=== PATIENT | female | born 1975 | race Caucasian/White ===

== ENCOUNTER → 2018-04-23 | Outpatient (CLI) | payer OTHER ==
[~2018-04-23] MED LIST: No meds per pt.
[2018-04-23 13:44] LABS: BASOPHILS # (AUTO) 0.04 x10^3/uL (0-0.1); BASOPHILS % (AUTO) 0 % (0-1); EOSINOPHILS # (AUTO) 0.56 x10^3/uL (0-0.4); EOSINOPHILS % (AUTO) 5 % (1-7); LYMPHOCYTES # (AUTO) 2.63 x10^3/uL (1-3.4); LYMPHOCYTES % (AUTO) 23 % (22-44); MD NO; MEAN CORPUSCULAR HEMOGLOBIN 30.9 pg (27.0-34.8); MEAN CORPUSCULAR HGB CONC 33.2 g/dL (32.4-35.8); MEAN CORPUSCULAR VOLUME 93.2 fL (80-100); MEAN PLATELET VOLUME 8.1 fL (7.4-10.4); MONOCYTES # (AUTO) 0.52 x10^3/uL (0.2-0.8); MONOCYTES % (AUTO) 5 % (2-9); NEUTROPHILS # (AUTO) 7.85 x10^3/uL (1.8-6.8); NEUTROPHILS % (AUTO) 68 % (42-75); PLATELET COUNT 400 x10^3/uL (130-400); RED BLOOD COUNT 4.14 x10^6/uL (3.82-5.3); RED CELL DISTRIBUTION WIDTH 13.3 % (9.6-15.2)
== END | disposition home or self-care (01) ==
LOC: STAR 12:53
PROVIDERS: ATTEND Obstetrics & Gynecology Female Pelvic Medicine and Reconstructive Surgery
DX: Z01.818 Encounter for other preprocedural examination (principal)
CPT/HCPCS: 36415; 84703; 85025

== ENCOUNTER 2018-05-06 08:55 | Day surgery (SDC) | payer OTHER ==
[~2018-05-06] VITALS: Ht 157.5 cm; Wt 53.1 kg
[~2018-05-06 08:55] MED LIST changes: +BUPIVACAINE 0.25% ONE; +EPINEPHRINE 1 MG/ML, 1ML ONE; +INDIGO CARMINE 0.8%, 5ML ONE; +THROMBIN 5,000 UNIT VIAL TP ONE
[2018-05-06] MEDS ORDERED: LACTATED RINGERS 1,000 ML IV SCH ×2 (09:47→12:12)
[2018-05-06] MEDS ORDERED: ONDANSETRON ODT 8 MG PO ONE ×2 (10:00)
[2018-05-06] MEDS ORDERED: GABAPENTIN 300 MG CAPSULE PO ONE ×2 (10:00)
[2018-05-06] MEDS ORDERED: ACETAMINOPHEN 500 MG TABLET PO ONE ×2 (10:00)
[2018-05-06] MEDS ORDERED: MIDAZOLAM 1 MG/ML, 2ML ONE (10:09)
[2018-05-06] MEDS ORDERED: FENTANYL PF 250 MCG/5ML ONE (10:10)
[2018-05-06 10:25] LABS: HCG UR SG 1.019 (1.003-1.030)
[2018-05-06] MEDS ORDERED: LIDOCAINE 2% 100MG/5ML SYRINGE ONE (10:49)
[2018-05-06] MEDS ORDERED: KETOROLAC 30 MG/1 ML ONE (10:49)
[2018-05-06] MEDS ORDERED: SCOPOLAMINE PATCH, 1.5MG PATCH.TD72 TD PRN (11:30)
[2018-05-06] MEDS ORDERED: MEPERIDINE/PF 25MG/0.5ML IVPush PRN (11:30)
[2018-05-06] MEDS ORDERED: LABETALOL 5MG/ML, 20ML IV PRN (11:30)
[2018-05-06] MEDS ORDERED: MIDAZOLAM 1 MG/ML, 2ML IV PRN (11:30)
[2018-05-06] MEDS ORDERED: HYDROmorphone 1 MG/ML, 1ML IV PRN (11:30)
[2018-05-06] MEDS ORDERED: FENTANYL PF 100 MCG/2ML IV PRN (11:30)
[2018-05-06] MEDS ORDERED: PROMETHAZINE 25 MG SUPP PR PRN (11:30)
[2018-05-06] MEDS ORDERED: ONDANSETRON 2MG/ML, 2ML IV PRN (11:30)
[2018-05-06] MEDS ORDERED: ALBUTEROL/IPRATROPIUM 2.5MG/0.5MG, 3 ML NPPB PRN (11:30)
[2018-05-06] MEDS ORDERED: OXYcodone 5 MG/5 ML ORAL.SOL UDC PO PRN (11:30)
[2018-05-06] MEDS ORDERED: GLYCOPYRROLATE 0.2MG/1ML, 5ML ONE (12:03)
[2018-05-06] MEDS ORDERED: CEFAZOLIN 1,000 MG ONE (12:03)
[2018-05-06] MEDS ORDERED: NEOSTIGMINE 1 MG/ML, 10ML ONE (12:03)
[2018-05-06] MEDS ORDERED: DEXAMETHASONE 4 MG/ML, 1ML ONE (12:03)
[2018-05-06] MEDS ORDERED: PROPOFOL 10 MG/ML, 20ML ONE (12:03)
[2018-05-06] MEDS ORDERED: ROCURONIUM 10MG/ML,5ML ONE (12:03)
[2018-05-06] MEDS ORDERED: HYDROcodone/APAP 5/325 TABLET PO PRN (12:30)
[2018-05-06] MEDS ORDERED: IBUPROFEN 600 MG TABLET PO PRN (12:30)
[2018-05-06] MEDS ORDERED: ONDANSETRON 2MG/ML, 2ML IVPush PRN (12:30)
[2018-05-06] MEDS ORDERED: PROMETHAZINE 25 MG SUPP PR ONE (12:30)
[2018-05-06] MEDS ORDERED: OXYcodone 5 MG/5 ML ORAL.SOL UDC ONE (12:32)
[2018-05-06] MEDS ORDERED: FENTANYL PF 100 MCG/2ML ONE (12:32)
== END 2018-05-06 16:40 | disposition home or self-care (01) ==
LOC: OUT 08:55
PROVIDERS: ATTEND Obstetrics & Gynecology Female Pelvic Medicine and Reconstructive Surgery
DX: D25.1 Intramural leiomyoma of uterus (principal); N92.0 Excessive and frequent menstruation with regular cycle; D06.9 Carcinoma in situ of cervix, unspecified; D64.9 Anemia, unspecified; G43.909 Migraine, unspecified, not intractable, without status migrainosus; F32.9 Major depressive disorder, single episode, unspecified; F41.9 Anxiety disorder, unspecified; F17.210 Nicotine dependence, cigarettes, uncomplicated; Z98.51 Tubal ligation status; Z98.890 Other specified postprocedural states
CPT/HCPCS: 58571; 81025; 88307; J0171; J0690; J1100; J1885; J2250; J2704; J2710; J3010; J3490; J7120; Q0162

== ENCOUNTER → 2018-07-17 | Outpatient (CLI) | payer OTHER ==
[~2018-07-17] MED LIST changes: -BUPIVACAINE 0.25% ONE; -EPINEPHRINE 1 MG/ML, 1ML ONE; -INDIGO CARMINE 0.8%, 5ML ONE; -THROMBIN 5,000 UNIT VIAL TP ONE
== END | disposition home or self-care (01) ==
LOC: CFH 10:09
PROVIDERS: ATTEND Obstetrics & Gynecology Female Pelvic Medicine and Reconstructive Surgery
DX: R10.2 Pelvic and perineal pain (principal); G89.29 Other chronic pain; Z90.710 Acquired absence of both cervix and uterus
CPT/HCPCS: 76830